=== PATIENT | male | born 1950 | race Two or more races ===

== ENCOUNTER 2024-11-07 21:58 | Inpatient (IN) | payer OTHER ==
[~2024-11-07] VITALS: Ht 172.7 cm; Wt 87.9 kg
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
[2024-11-07 22:51] LABS: Basophils # (auto) 0 10 ^3/uL (0-0.2); Eosinophils # (auto) 0.4 10 ^3/uL (0-0.8); Hematocrit 20.2 % (41.0-53.0); Lymphocytes # (auto) 1.5 10 ^3/uL (0.4-5.4); Mean Corpuscular Volume 70.4 fL (80.0-100.0); Monocytes # (auto) 0.7 10 ^3/uL (0-1.3); White Blood Cell 6.4 10^3/uL (4.4-10.8)
[2024-11-07 22:52] LABS: Basophils % (auto) 0.4 % (0.0-2.0); Eosinophils % (auto) 6.3 % (0.0-7.0); Lymphocytes % (auto) 23.9 % (10.0-50.0); Mean Corpuscular Hgb Conc. 29.8 g/dL (32.0-36.0); Monocytes % (auto) 10.9 % (0.0-12.0); Neutrophils # (auto) 3.7 10 ^3/uL (1.6-8.6); Neutrophils % (auto) 58.5 % (37.0-80.0); Platelet Count (auto) 148 10^3/uL (140-450); Red Blood Cells 2.87 10^6/uL (4.5-5.90); Red Cell Distribution Width 18.7 % (11.8-14.3)
[2024-11-07 23:04] LABS: Alanine Aminotransferase 22 U/L (7-40); Albumin 3.7 g/dL (3.2-4.8); Anion Gap 6 (5-15); Aspartate Aminotransferase 39 U/L (13-40); BUN/Creatinine Ratio 14.3 (10.0-20.0); Blood Urea Nitrogen 20 mg/dL (9-23); Calcium 9.4 mg/dL (8.7-10.4); Carbon Dioxide 25 mmol/L (20-31); Sodium 139 mmol/L (136-145)
[2024-11-07 23:05] LABS: Bilirubin, Total 0.6 mg/dL (0.2-1.0); Total Protein 6.3 g/dL (5.7-8.2)
[2024-11-07 23:06] LABS: Alkaline Phosphatase 145 U/L (46-116); Chloride 108 mmol/L (98-107); Glucose 139 mg/dL (74-106)
[2024-11-07 23:15] LABS: Hypochromia Slight; Platelet Estimate Adequate
[2024-11-07 23:18] LABS: Ovalocytes FEW; Stomatocytes Few
--- NOTE | 2024-11-07 23:51 | DVH ---
CHEST RADIOGRAPH Indication: SOB Technique: Single frontal view of the chest was obtained Comparison: None FINDINGS: Lines and Tubes: None Lungs: Clear Pleura: No effusion. No pneumothorax. Cardiomediastinal contours: Unremarkable Bones: Unremarkable IMPRESSION: Clear lungs.
[2024-11-08] VITALS (9 sets, daily range): BP systolic 111–132; BP diastolic 49–66; PULSE 77–104; RESP 13–20; TEMP 98–98.6; O2SAT 96–100
[2024-11-08] MEDS: PANTOPRAZOLE 40 MG/10 ML VIAL INJ IV ONE (01:24)
--- NOTE | 2024-11-08 03:48 | ECG ---
[facility] Test Date: 2024-11-07 Test Time: 22:19:43 Pat Name: COLTON CORDERO Department: ED Room: 0293 Gender: M Insurance Claims Analyst: YVONNE : 1950 Requested By: EMERGENCY EMERGENCY Order Number: [id number] Reading MD: Aniceto Barr Measurements Intervals [place] Rate: 85 P: 69 AK: 161 QRS: 52 QRSD: 87 T: 47 QT: 369 QTc: 439 Interpretive Statements Sinus rhythm Low voltage, extremity leads Electronically Signed On 11-11-2024 8:49:47 PST by Aniceto Barr Please click the below link to view image of tracing.
[2024-11-08] MEDS: SODIUM CHLORIDE 0.9% 1,000 ML IV ONE (10:20)
[2024-11-08] MEDS ORDERED: PANT40TA2 PO (11:06)
[2024-11-08 12:01] LABS: % Iron Saturation 6.2 % (20-55)
[2024-11-08] MEDS ORDERED: NITROGLYCERIN 0.4 MG SL TAB SL PRN (15:30)
[2024-11-08] MEDS ORDERED: ACETAMINOPHEN 325 MG TAB PO PRN (15:30)
[2024-11-08] MEDS ORDERED: HYDROcodone-ACET 5/325MG TAB PO PRN (15:30)
[2024-11-08] MEDS ORDERED: MORPHINE SULFATE INJ 2 MG/ml SYRG IV PRN ×2 (15:30)
--- NOTE | 2024-11-08 15:58 | DVHHP2 ---
Admitting Diagnosis: Anemia History of Present Illness HPI Patient is a 74-year-old male with past medical history of hyperlipidemia, type 2 diabetes, hypothyroidism, who presents with complaints of shortness of breath. Patient presented to the ER with vitals notable for hypotension on admission with BP of 97/40. Patient was saturating 100% on room air. CBC was notable for hemoglobin of 6.0. CMP was notable for BUN/creatinine of 20/1.4. No prior ba seline noted. Patient denied any signs of gross bleeding including hematemesis, melena, hematochezia, or bright red blood per rectum. Patient notes he has been taking naproxen twice daily for pain. He notes his last 2 to 3 years ago. He does not recall ever having an EGD. Patient was admitted for PRBC transfusion and further evaluation. Home Meds Active Scripts Pantoprazole Sodium Sesquihydr (Protonix) 40 Mg Tab, 40 MG PO BID for 30 Days, #60 TAB 0 Refills Prov:REMIGIO LICONA DO 11/08/24 Past Medical History Cardiac: HTN Endocrine: IDDM Review of Systems Constitutional: No symptom reported Pulmonary/Respiratory: Dyspnea H&P Exam Vital Signs Vital Signs Date Time Temp Pulse Resp B/P (MAP) Pulse Ox O2 Delivery O2 Flow Rate FiO2 11/08/24 14:00 84 12 111/62 (78) 98 11/08/24 07:47 98.8 98.8 11/08/24 07:47 Room Air* 0 21 General Appeara: Well developed Head Exam: Normal inspection Pulmonary/Respiratory: Normal inspection, Normal breath sounds Labs/Xrays Labs Test 11/08/24 11:40 11/08/24 11:23 11/07/24 23:37 11/07/24 22:31 Range/Units Iron Level 21 L 65-175 ug/dL Total Iron Binding Capacity 340 250-425 ug/dL Percent Iron Saturation 6.2 L 20-55 % Ferritin 3.2 L 22-322 ng/mL Troponin I High Sensitivity < 3 L </=54 ng/L White Blood Count 6.4 4.4-10.8 10^3/uL Red Blood Count 2.87 L 4.5-5.90 10^6/uL Hemoglobin 6.0 *L 13.5-17.5 g/dL Hematocrit 20.2 L 41.0-53.0 % Mean Corpuscular Volume 70.4 L 80.0-100.0 fL Mean Corpuscular Hemoglobin 21.0 L 28.0-32.0 pg Mean Corpuscular Hemoglobin Concent 29.8 L 32.0-36.0 g/dL Red Cell Distribution Width 18.7 H 11.8-14.3 % Platelet Count 148 140-450 10^3/uL Mean Platelet Volume 8.8 6.9-10.8 fL Neutrophils (%) (Auto) 58.5 37.0-80.0 % Lymphocytes (%) (Auto) 23.9 10.0-50.0 % Monocytes (%) (Auto) 10.9 0.0-12.0 % Eosinophils (%) (Auto) 6.3 0.0-7.0 % Basophils (%) (Auto) 0.4 0.0-2.0 % Neutrophils # (Auto) 3.7 1.6-8.6 10 ^3/uL Lymphocytes # (Auto) 1.5 0.4-5.4 10 ^3/uL Monocytes # (Auto) 0.7 0-1.3 10 ^3/uL Eosinophils # (Auto) 0.4 0-0.8 10 ^3/uL Basophils # (Auto) 0 0-0.2 10 ^3/uL Nucleated Red Blood Cells 0.0 % Platelet Estimate Adequate Hypochromasia (manual) Slight Microcytosis Slight Ovalocytes Few Stomatocytes Few Sodium Level 139 136-145 mmol/L Potassium Level 5.0 3.5-5.1 mmol/L Chloride Level 108 H 98-107 mmol/L Carbon Dioxide Level 25 20-31 mmol/L Anion Gap 6 5-15 Blood Urea Nitrogen 20 9-23 mg/dL Creatinine 1.40 H 0.700-1.30 mg/dL Glomerular Filtration Rate Calc 53 >90 mL/min BUN/Creatinine Ratio 14.3 10.0-20.0 Serum Glucose 139 H 74-106 mg/dL Calcium Level 9.4 8.7-10.4 mg/dL Total Bilirubin 0.6 0.2-1.0 mg/dL Aspartate Amino Transferase (AST) 39 13-40 U/L Alanine Aminotransferase (ALT) 22 7-40 U/L Alkaline Phosphatase 145 H 46-116 U/L B-Type Natriuretic Peptide 45.15 0-100 pg/mL Total Protein 6.3 5.7-8.2 g/dL Albumin 3.7 3.2-4.8 g/dL Assessment/Plan Primary Diagnosis 1. Anemia 2' Diagnosis/Co-morbidities 2. Type 2 DM 3. HTN 4. GERD Plan -Admit to [facility] -Plan for 2 units PRBC transfusion -Ultrasound renal pending -Home medications to be restarted pending reconciliation by pharmacy -Plan for outpatient colonoscopy -Iron panel consistent with iron deficiency anemia -Protonix 1 mg IV twice daily Full code Plan discussed with: Patient REMIGIO LICONA Carolina BRAN Nov 08, 2024 15:58
--- NOTE | 2024-11-08 16:38 | DVH ---
INDICATION: CASSY vs CKD TECHNIQUE: Multiple real-time sonographic images of the kidneys and bladder were obtained. COMPARISON: None FINDINGS: The right kidney measures 9.1 cm in length, which is normal in size. There is normal echogenicity of the right kidney. No hydronephrosis. The left kidney measures 10.9 cm in length, which is normal in size. There is normal echogenicity of the left kidney. No hydronephrosis. Urinary bladder is unremarkable urinary bladder volume of 248 cc. IMPRESSION: Normal sonographic appearance of the kidneys and urinary bladder. No hydronephrosis.
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
[2024-11-08] MEDS: TEMAZEPAM 15 MG CAP PO PRN (22:40)
[2024-11-09] VITALS (11 sets, daily range): BP systolic 92–146; BP diastolic 34–92; PULSE 61–85; RESP 12–20; TEMP 97.9–98.3; O2SAT 97–100
[2024-11-09] MEDS ORDERED: METF-372 PO (03:07)
[2024-11-09] MEDS ORDERED: POTA-211 PO (03:07)
[2024-11-09] MEDS ORDERED: ENAL1TAB48 PO (03:07)
[2024-11-09] MEDS ORDERED: OMEP1CAP70 PO (03:07)
[2024-11-09] MEDS ORDERED: FURO40TA4 PO (03:07)
[2024-11-09] MEDS ORDERED: BACL10TA PO (03:07)
[2024-11-09] MEDS ORDERED: SILD100T73 PO (03:07)
[2024-11-09] MEDS ORDERED: ATOR40TA52 PO (03:07)
[2024-11-09] MEDS ORDERED: TRAZ1TAB12 PO (03:07)
[2024-11-09] MEDS ORDERED: LEVO112T4 (03:07)
[2024-11-09] MEDS ORDERED: ALEN70TA74 PO (03:07)
[2024-11-09] MEDS: PANTOPRAZOLE 40 MG/10 ML VIAL INJ IV SCH (05:17)
[2024-11-09 07:43] LABS: Basophils # (auto) 0 10 ^3/uL (0-0.2); Eosinophils # (auto) 0.4 10 ^3/uL (0-0.8); Hemoglobin 8.5 g/dL (13.5-17.5); Monocytes # (auto) 0.5 10 ^3/uL (0-1.3)
[2024-11-09 07:45] LABS: Alanine Aminotransferase 20 U/L (7-40); Anion Gap 7 (5-15); Aspartate Aminotransferase 40 U/L (13-40); BUN/Creatinine Ratio 15.6 (10.0-20.0); Blood Urea Nitrogen 17 mg/dL (9-23); Calcium 9.7 mg/dL (8.7-10.4); Carbon Dioxide 23 mmol/L (20-31); Chloride 107 mmol/L (98-107); Potassium 4.7 mmol/L (3.5-5.1); Sodium 137 mmol/L (136-145); Total Protein 6.5 g/dL (5.7-8.2)
[2024-11-09 07:46] LABS: Basophils % (auto) 0.5 % (0.0-2.0); Eosinophils % (auto) 7.1 % (0.0-7.0); Hematocrit 26.5 % (41.0-53.0); Lymphocytes # (auto) 1.2 10 ^3/uL (0.4-5.4); Mean Corpuscular Hemoglobin 23.8 pg (28.0-32.0); Mean Corpuscular Hgb Conc. 32.1 g/dL (32.0-36.0); Mean Corpuscular Volume 74.4 fL (80.0-100.0); Monocytes % (auto) 9.8 % (0.0-12.0); Neutrophils # (auto) 3.3 10 ^3/uL (1.6-8.6); Neutrophils % (auto) 60.6 % (37.0-80.0); Platelet Count (auto) 129 10^3/uL (140-450); Red Blood Cells 3.57 10^6/uL (4.5-5.90); Red Cell Distribution Width 22.2 % (11.8-14.3); White Blood Cell 5.4 10^3/uL (4.4-10.8)
[2024-11-09 07:47] LABS: Alkaline Phosphatase 141 U/L (46-116); Bilirubin, Total 1.9 mg/dL (0.2-1.0); Glucose 108 mg/dL (74-106)
[2024-11-09] MEDS ORDERED: PANTOPRAZOLE 40 MG/10 ML VIAL INJ IV SCH (09:00)
[2024-11-09] MEDS ORDERED: NALOXONE HCL 0.4 MG/ML VIAL ONE (12:29)
[2024-11-09] MEDS ORDERED: LIDOCAINE VISCOUS 2% 15ML UD ONE (12:29)
[2024-11-09] MEDS ORDERED: FLUMAZENIL 0.1 MG/ML INJ 10ML MDV IV ONE (12:29)
[2024-11-09] MEDS ORDERED: SODIUM CHLORIDE LOCK 10 ML ONE (12:30)
[2024-11-09] MEDS ORDERED: diphenhdrAMINE HCL 50 MG/1 ML VL ONE (12:30)
[2024-11-09 12:47] LABS: Urine Bacteria None Seen /hpf (None Seen)
[2024-11-09 13:11] LABS: Urine Blood Negative /uL (Negative); Urine Clarity Clear (Clear); Urine Color Light-Yellow (Yellow); Urine Protein, UAD Negative (Negative); Urine Specific Gravity 1.012 (1.001-1.035); Urine Squamous Epithelial Cell None Seen /hpf (<5); Urine Urobilinogen Normal (Negative); Urine WBC 1 /HPF (0-3); Urine pH 7.5 (5.0-9.0)
[2024-11-09 13:15] LABS: INR 1.14 (0.9-1.15); Partial Thromboplastin Time 26.5 SEC (24.5-34.5); Prothrombin Time 11.9 sec (9.3-11.8)
--- NOTE | 2024-11-09 13:27 | DVHPN2 ---
Progress Note - Dictate Date Seen: Nov 09, 2024 Medical Necessity Reason Pt with a Central, PICC or Fol: No Subjective The pt has no new complaints. Denies melena, hematochezia, abd pain. vital signs Vital Sign Date Time Temp Pulse Resp B/P (MAP) Pulse Ox O2 Delivery O2 Flow Rate FiO2 11/09/24 09:00 98.2 80 18 118/56 (76) 97 98.2 11/08/24 20:00 Room Air* 0 21 Total Intake and Output 11/08/24 11/08/24 11/09/24 15:00 23:00 07:00 Intake Total 400 ml 200 ml 1150 ml Output Total 1000 ml Balance 400 ml 200 ml 150 ml medications Current Medications Medications Dose Ordered Sig/Sam Route Start Time Stop Time Status Last Admin Dose Admin Acetaminophen 325 mg Q4HP PRN PO 11/08/24 15:30 Acetaminophen/ Hydrocodone Bitart 1 tab Q4HP PRN PO 11/08/24 15:30 Temazepam 15 mg QHSP PRN PO 11/08/24 15:30 11/08/24 22:40 15 MG Morphine Sulfate 2 mg Q4HPRN PRN IV 11/08/24 15:30 Nitroglycerin 0.4 mg Q5MINP PRN SL 11/08/24 15:30 Morphine Sulfate 2 mg Q30M PRN IV 11/08/24 15:30 Pantoprazole Sodium 40 mg BID IV 11/09/24 07:00 11/09/24 05:17 40 MG objective Alert RRR BS+ s/nd/nt laboratory and microbiology Laboratory Tests 11/09/24 05:54 Test 11/09/24 05:54 Range/Units Serum Glucose 108 H 74-106 mg/dL Problem List 1) Microcytic anemia. Pt is at risk for UGI bleeding due to chronic NSAID use. Last colo done was in 2017 with [facility]: Cont PPI Cont to monitor H&H serially. EGD today. Hold ASA/NSAIDs. r/b/a to EGD d/w pt. Plan discussed with: Patient RYLAN MIGUEL MD Nov 09, 2024 13:27
[2024-11-09] MEDS: MIDAZOLAM HCL 5 MG/ML-1ML VIAL ONE (13:30)
[2024-11-09] MEDS: fentaNYL CITRATE 100 MCG/2 ML VL ONE (13:30)
--- NOTE | 2024-11-09 13:37 | DVHOP2 ---
Operative Report DATE OF OPERATION: 11/09/24 PROCEDURE: Upper Endoscopy. PREOPERATIVE INDICATION: The patient is a 74 -year-old male undergoing endoscopy for anemia POSTOPERATIVE DIAGNOSES: Gastritis PROCEDURE PERFORMED BY: Mejia Ellis MD GI NURSE: SCOPE: Olympus videoendoscope. ASA CLASS: II PREOPERATIVE MEDICATIONS: Versed 3 mg, Fentanyl 25 mcg, PROCEDURE IN DETAIL: After obtaining an informed consent, the patient was placed on left lateral decubitus position. The patient was then sedated with the above medications. A bite block was placed between he teeth. The endoscope was then passed through the oropharynx, into the esophagus, and through the stomach and pylorus up to the second and third part of the duodenum. The endoscope was then withdrawn. The patient tolerated the procedure well without difficulty. Summary of Findings: 1) Normal esophagus. 2) Moderate antral gastritis. Biopsies taken. Otherwise normal stomach. 3) Normal duodenal bulb and 2nd portion. COMPLICATIONS : None SPECIMENS: Antral biopsies DISPOSITION: Transfer back to the floor D/C to home from GI perspective PLAN: 1. Await for biopsy result 2. Will place pt on Protonix 40 mg daily 3. Avoid NSAIDs. 4. Outpt f/u with GI clinic for colonoscopy in 2-3 weeks MEJIA ELLIS MD Nov 09, 2024 13:37
[2024-11-09] MEDS ORDERED: PANT40TA2 PO (13:45)
--- NOTE | 2024-11-09 13:54 | DVHDS2 ---
Discharge Summary Date of Admission Nov 08, 2024 at 05:29 Date of Discharge: Nov 09, 2024 Labs/Diagnostic Data: Laboratory Results Test 11/09/24 12:25 11/09/24 11:45 11/09/24 05:54 11/08/24 11:40 Prothrombin Time 11.9 sec (9.3-11.8) Prothrombin Time INR 1.14 (0.9-1.15) Activated Partial Thromboplast Time 26.5 SEC (24.5-34.5) Urine Color Light-yellow (Yellow) Urine Clarity Clear (Clear) Urine pH 7.5 (5.0-9.0) Urine Specific [place] 1.012 (1.001-1.035) Urine Protein Negative (Negative) Urine Ketones Negative (Negative) Urine Blood Negative /uL (Negative) Urine Nitrite Negative (Negative) Urine Bilirubin Negative (Negative) Urine Urobilinogen Normal mg/dL (Negative) Urine Leukocyte Esterase Negative /uL (Negative) Urine RBC 1 /hpf (0 - 3) Urine Microscopic WBC 1 /HPF (0-3) Urine Squamous Epithelial Cells None seen /hpf (<5) Urine Bacteria None seen /hpf (None Seen) Urine Glucose Normal mg/dL (Normal) White Blood Count 5.4 10^3/uL (4.4-10.8) Red Blood Count 3.57 10^6/uL (4.5-5.90) Hemoglobin 8.5 g/dL (13.5-17.5) Hematocrit 26.5 % (41.0-53.0) Mean Corpuscular Volume 74.4 fL (80.0-100.0) Mean Corpuscular Hemoglobin 23.8 pg (28.0-32.0) Mean Corpuscular Hemoglobin Concent 32.1 g/dL (32.0-36.0) Red Cell Distribution Width 22.2 % (11.8-14.3) Platelet Count 129 10^3/uL (140-450) Mean Platelet Volume 8.6 fL (6.9-10.8) Neutrophils (%) (Auto) 60.6 % (37.0-80.0) Lymphocytes (%) (Auto) 22.0 % (10.0-50.0) Monocytes (%) (Auto) 9.8 % (0.0-12.0) Eosinophils (%) (Auto) 7.1 % (0.0-7.0) Basophils (%) (Auto) 0.5 % (0.0-2.0) Neutrophils # (Auto) 3.3 10 ^3/uL (1.6-8.6) Lymphocytes # (Auto) 1.2 10 ^3/uL (0.4-5.4) Monocytes # (Auto) 0.5 10 ^3/uL (0-1.3) Eosinophils # (Auto) 0.4 10 ^3/uL (0-0.8) Basophils # (Auto) 0 10 ^3/uL (0-0.2) Nucleated Red Blood Cells 0.0 % Sodium Level 137 mmol/L (136-145) Potassium Level 4.7 mmol/L (3.5-5.1) Chloride Level 107 mmol/L (98-107) Carbon Dioxide Level 23 mmol/L (20-31) Anion Gap 7 (5-15) Blood Urea Nitrogen 17 mg/dL (9-23) Creatinine 1.09 mg/dL (0.700-1.30) Glomerular Filtration Rate Calc 72 mL/min (>90) BUN/Creatinine Ratio 15.6 (10.0-20.0) Serum Glucose 108 mg/dL (74-106) Calcium Level 9.7 mg/dL (8.7-10.4) Total Bilirubin 1.9 mg/dL (0.2-1.0) Aspartate Amino Transferase (AST) 40 U/L (13-40) Alanine Aminotransferase (ALT) 20 U/L (7-40) Alkaline Phosphatase 141 U/L (46-116) Total Protein 6.5 g/dL (5.7-8.2) Albumin 4.0 g/dL (3.2-4.8) Iron Level 21 ug/dL (65-175) Total Iron Binding Capacity 340 ug/dL (250-425) Percent Iron Saturation 6.2 % (20-55) Test 11/08/24 11:23 11/07/24 23:37 11/07/24 22:31 Ferritin 3.2 ng/mL (22-322) Troponin I High Sensitivity < 3 ng/L (</=54) Platelet Estimate Adequate Hypochromasia (manual) Slight Microcytosis Slight Ovalocytes Few Stomatocytes Few B-Type Natriuretic Peptide 45.15 pg/mL (0-100) Other Laboratory Tests 11/09/24 05:54 Brief Hx & Hospital Course: Patient is a 74-year-old male with past medical history of hyperlipidemia, type 2 diabetes, hypothyroidism, who presents with complaints of shortness of breath. Patient presented to the ER with vitals notable for hypotension on admission with BP of 97/40. Patient was saturating 100% on room air. CBC was notable for hemoglobin of 6.0. CMP was notable for BUN/creatinine of 20/1.4. No prior baseline noted. Patient denied any signs of gross bleeding including hematemesis, melena, hematochezia, or bright red blood per rectum. Patient notes he has been taking naproxen twice daily for pain. He notes his last 2 to 3 years ago. He does not recall ever having an EGD. Patient was admitted for PRBC transfusion and further evaluation. Patient transfused 2 units PRBC. Hemoglobin subsequently improved from hemoglobin of 6-8.5.. Patient underwent EGD which showed moderate antral gastritis. There was a normal duodenal bulb. There is recommended the patient be discharged on Protonix 40 mg p.o. daily. Patient was monitored after his EGD. He was subsequently discharged home. Patient was hemodynamically without any signs of bleeding. Patient is to follow-up with GI. [facility] case management arrange follow-up appointments. Condition at Discharge: Good Final Diagnosis/Problems List Anemia Secondary Diagnosis: CASSY Discharge Disposition: Home Discharge Instruct/Medications Diet: Cardiac 2g Na,low cholest Activity: No Restrictions, As Tolerated Follow Up/Referral: Follow up with gastroenterology. Medications: Protonix 40mg BID Discharge Statement: "Patient was advised to return to the ER or call 911 if any headaches, dizziness, shortness of breath, chest pain, abdominal pain, bleeding, fevers, or worsening of medical condition. Patient was counseled about treatment plan, medications, possible side effects, patientverbalized understanding. All questions were answered to the best of my ability. This discharge took greater then 30 minutes in planning, reviewing documentation, counseling the patient, and discussing with other team members." ASSESSMENT ASSESSMENT Assessment Anemia REMIGIO LICONA DO Nov 09, 2024 13:54
--- NOTE | 2024-11-12 10:21 | ECG ---
[facility] Test Date: 2024-11-07 Test Time: 22:20:34 Pat Name: COLTON CORDERO Department: ED Room: 0293 B Gender: M Recruiter Manager: YVONNE : 1950 Requested By: CLAIRE FAUST Order Number: [id number] Reading MD: Aniceto Barr Measurements Intervals [place] Rate: 83 P: 68 ND: 163 QRS: 49 QRSD: 88 T: 46 QT: 370 QTc: 435 Interpretive Statements Sinus rhythm Low voltage, extremity leads Electronically Signed On 11-13-2024 10:17:31 PST by Aniceto Barr Please click the below link to view image of tracing.
== END 2024-11-09 15:30 | disposition home or self-care (01) | DRG 811 ==
LOC: ER 21:58 → OVERFLOW 11-08 05:29 → WEST WING 11-08 12:39
PROVIDERS: ADMIT Student in an Organized Health Care Education/Training Program; ATTEND Student in an Organized Health Care Education/Training Program
PROC: 30233N1 Transfusion of Nonautologous Red Blood Cells into Peripheral Vein, Percutaneous Approach (ICD-10-PCS; principal; 2024-11-08)
PROC: 0DB78ZX Excision of Stomach, Pylorus, Via Natural or Artificial Opening Endoscopic, Diagnostic (ICD-10-PCS; 2024-11-09)
DX: D50.9 Iron deficiency anemia, unspecified (principal); K29.71 Gastritis, unspecified, with bleeding; N17.0 Acute kidney failure with tubular necrosis; K21.9 Gastro-esophageal reflux disease without esophagitis; E11.9 Type 2 diabetes mellitus without complications; I10 Essential (primary) hypertension; I25.10 Atherosclerotic heart disease of native coronary artery without angina pectoris; E03.9 Hypothyroidism, unspecified; E78.5 Hyperlipidemia, unspecified; I95.9 Hypotension, unspecified; Z79.4 Long term (current) use of insulin; Z79.899 Other long term (current) drug therapy
CPT/HCPCS: 36415; 43239; 71045; 76775; 80053; 81001; 82728; 83540; 83550; 83880; 84484; 85025; 85610; 85730; 86850; 86880; 86900; 86901; 86905; 86906; 86922; 93005; 99291; G0378; J2250; J2470